=== PATIENT | male | born 1985 | race African-American/Black ===

== ENCOUNTER 2019-01-12 09:35 | Emergency (ER) | payer SELFPAY ==
--- NOTE | 2019-01-12 10:24 | ER Document Report ---
HPI - HPI Patient complains to provider of: hand pain Time Seen by Provider: 01/12/19 10:24 Onset: Other Quality of pain: Achy Severity: Severe Pain Level: 5 Context: Patient presents emergency department with complaints of right hand pain. He reports he punched a wall 2 to 3 days ago. Denies past medical history of injury to the hand. Denies other symptoms such as fever vomiting diarrhea. 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 Good cap refill. patient Is right-hand dominant Associated Symptoms: None Exacerbated by: Movement Relieved by: Denies Similar symptoms previously: No Recently seen / treated by doctor: No Past Medical History - General Information source: Patient - Social History Smoking Status: Current Every Day Smoker Cigarette use (# per day): Yes Frequency of alcohol use: Occasional Drug Abuse: Marijuana Occupation: None Family History: Reviewed & Not Pertinent Patient has suicidal ideation: No Patient has homicidal ideation: No - Medical History Medical History: Negative Surgical Hx: Negative - Immunizations Immunizations up to date: Yes Hx Diphtheria, Pertussis, Tetanus Vaccination: Yes Vertical Provider Document - CONSTITUTIONAL Agree With Documented VS: Yes Exam Limitations: No Limitations General Appearance: WD/WN, No Apparent Distress - INFECTION CONTROL TRAVEL OUTSIDE OF THE [place] IN LAST 30 DAYS: No - HEENT HEENT: Atraumatic, Normocephalic - NECK Neck: Supple - RESPIRATORY Respiratory: No Respiratory Distress - CARDIOVASCULAR Cardiovascular: Regular Rate - MUSCULOSKELETAL/EXTREMETIES Musculoskeletal/Extremeties: MAEW, Tender - Patient complains of dorsal hand pain to fourth and fifth metacarpal hand is swollen no obvious deformity good cap refill good radial pulse - NEURO Level of Consciousness: Awake, Alert, Appropriate Motor/Sensory: No Motor Deficit - DERM Integumentary: Warm, Dry Adult Front & Back Diagram: 1 - Patient reports pain Course - Re-evaluation Re-evalutation: 01/12/19 Patient was instructed on fracture hand. Instructed on the importance of follow-up with orthopedics for cast. Patient does not have a primary care provider nor does he have orthopedic. He was given 2 names to follow-up for orthopedics. Instructed to return here for concerns. Splint was placed. Patient verbalized understanding all instructions Dictation of this chart was performed using voice recognition software; therefore, there may be some unintended grammatical errors. 01/12/19 14:13 - Vital Signs Vital signs: Temp Pulse Resp BP Pulse Ox 98.5 F 66 16 136/81 H 98 01/12/19 09:42 01/12/19 09:42 01/12/19 09:42 01/12/19 09:42 01/12/19 09:42 - Diagnostic Test Radiology reviewed: Image reviewed, Reports reviewed - EXAM DESCRIPTION: HAND RIGHT 3 VIEWS COMPLETED DATE/TIME: 01/12/2019 10:21 am REASON FOR STUDY: Swelling and pain COMPARISON: None. EXAM PARAMETERS: NUMBER OF VIEWS: Three views. TECHNIQUE: AP, lateral and oblique radiographic images acquired of the right hand. LIMITATIONS: None. FINDINGS: MINERALIZATION: Normal. BONES: Comminuted fracture of the distal 5th metacarpal with mild volar angulation. JOINTS: No effusions. SOFT TISSUES: Mild soft tissue swelling. No foreign body. OTHER: No other significant finding. IMPRESSION: FRACTURE OF THE DISTAL 5TH METACARPAL. Procedures - Immobilization Right Hand Immobilizer type: Other - boxers Performed by: PCT Post-Proc Neuro Vasc Exam: Unchanged from pre-exam Alignment checked and good: Yes Discharge - Discharge Clinical Impression: Fracture of fifth metacarpal bone of right hand Qualifiers: Encounter type: initial encounter Fracture type: closed Metacarpal location: unspecified portion of metacarpal Condition: Stable Disposition: HOME, SELF-CARE Instructions: Fractured Fifth Metacarpal ([facility]), Use of Luba-Wto-Hcfscgz Ibuprofen ([facility]), Splint Pending Casting ([facility]) Additional Instructions: *You have been evaluated for right hand fifth metacarpal fracture *Maintain the splint *Rest/Ice/Elevate hand *Follow up with orthopedics within 1 week-call for an appointment- please see information listed on orthopedics *Take the motrin as indicated for pain *Return to ED for worsening condition, changes, needs Monitor your blood pressure. Your blood pressure was elevated today. This may be because you were anxious, in pain or because you need medication. It is important to follow up with your primary care provider for full evaluation. Forms: Elevated Blood Pressure Referrals: [facility] [Provider Group] - Follow up as needed MARGE GARAY MD [ASSOCIATE] - Follow up as needed
--- NOTE | 2019-01-12 10:32 | RADIOLOGY REPORT (SQ) ---
EXAM DESCRIPTION: HAND RIGHT 3 VIEWS COMPLETED DATE/TIME: 01/12/2019 10:21 am REASON FOR STUDY: Swelling and pain COMPARISON: None. EXAM PARAMETERS: NUMBER OF VIEWS: Three views. TECHNIQUE: AP, lateral and oblique radiographic images acquired of the right hand. LIMITATIONS: None. FINDINGS: MINERALIZATION: Normal. BONES: Comminuted fracture of the distal 5th metacarpal with mild volar angulation. JOINTS: No effusions. SOFT TISSUES: Mild soft tissue swelling. No foreign body. OTHER: No other significant finding. IMPRESSION: FRACTURE OF THE DISTAL 5TH METACARPAL. TECHNICAL DOCUMENTATION: JOB ID: [id number] [employer]- All Rights Reserved Reading location - IP/workstation name: [email or web address]
[2019-01-12] MEDS ORDERED: IBUPROFEN 800 MG TABLET PO ONE (10:37)
[2019-01-12 11:13] VITALS: BP 130/76
== END 2019-01-12 11:13 | disposition home or self-care (01) ==
LOC: ER 09:35
DX: S62.306A Unspecified fracture of fifth metacarpal bone, right hand, initial encounter for closed fracture (principal); W22.09XA Striking against other stationary object, initial encounter; F17.210 Nicotine dependence, cigarettes, uncomplicated
CPT/HCPCS: 99283